=== PATIENT | male | born 1980 | race Caucasian/White ===

== ENCOUNTER 2016-11-30 05:26 | Day surgery (SDC) | payer OTHER ==
[2016-11-30] VITALS (12 sets, daily range): BP systolic 110–146; BP diastolic 48–78; PULSE 68–96; RESP 14–21; Ht 188 cm; Wt 94.2 kg
[~2016-11-30] VITALS: Ht 188 cm; Wt 94.2 kg
[2016-11-30] MEDS ORDERED: BUPR-75 PO (06:17)
--- NOTE | 2016-11-30 06:23 | HPN ---
Date/Time of Note Date/Time of Note DATE: 11/30/16 TIME: 06:22 Interval H&P Admission Note Pt. seen H&P reviewed: No system changes RADHA APONTE MD Nov 30, 2016 06:23
[2016-11-30] MEDS ORDERED: LIDOCAINE 2% (SDV) 5 ML INJ ONE (06:27)
[2016-11-30] MEDS ORDERED: FENTAnyl 50 MCG/ML VIAL ONE ×2 (06:27→09:58)
[2016-11-30] MEDS ORDERED: GLYCOPYRROLATE 1 MG INJ ONE (06:27)
[2016-11-30] MEDS ORDERED: MIDAZOLAM 1 MG/ML 2 ML INJ ONE (06:27)
[2016-11-30] MEDS ORDERED: PROPOFOL 20 ML ONE (06:27)
[2016-11-30] MEDS ORDERED: NEOSTIGMINE 3 MG/3 ML SYRINGE ONE (06:27)
[2016-11-30] MEDS ORDERED: ROCURONIUM 50 MG INJ ONE (06:27)
[2016-11-30] MEDS ORDERED: SUGAMMADEX SODIUM 200 MG/2 ML VIAL IV ONE (06:28)
[2016-11-30] MEDS ORDERED: LABETALOL HCL 20MG INJ IV PRN (06:30)
[2016-11-30] MEDS ORDERED: HYDROmorphONE (0.2 MG/ML) 10ML SYG IV PRN ×3 (06:30)
[2016-11-30] MEDS ORDERED: MEPERIDINE 25 MG INJ IV PRN (06:30)
[2016-11-30] MEDS ORDERED: FENTAnyl 50 MCG/ML VIAL IV PRN ×2 (06:30)
[2016-11-30] MEDS ORDERED: hydrALAzine 20 MG INJ IV PRN (06:30)
[2016-11-30] MEDS ORDERED: EPHEDrine SULFATE 50 MG/5 ML SYG IV PRN (06:30)
[2016-11-30] MEDS ORDERED: morphine (1 MG/ML) 10ML SYRINGE IV PRN ×3 (06:30)
[2016-11-30] MEDS ORDERED: ONDANSETRON 4 MG INJ IV PRN ×2 (06:30→12:30)
[2016-11-30] MEDS ORDERED: ATROPINE 1 MG/10 ML SYRINGE IV PRN (06:30)
[2016-11-30] MEDS ORDERED: OXYCODONE/ACETAMINOPHEN (5/325) TAB PO PRN ×4 (06:30→12:30)
[2016-11-30] MEDS ORDERED: DIPHENHYDRAMINE 50 MG INJ IV PRN (06:30)
[2016-11-30] MEDS ORDERED: MIDAZOLAM 1 MG/ML 2 ML INJ IV PRN (06:30)
[2016-11-30] MEDS ORDERED: ROPIVACAINE 0.5 % 30 ML VIAL ONE ×2 (06:40→07:07)
[2016-11-30] MEDS ORDERED: SUCCINYLCHOLINE CHLORIDE 100 MG/5 ML SYG IV ONE (07:00)
[2016-11-30] MEDS ORDERED: DEXAMETHASONE 4 MG/ML 1 ML INJ ONE (07:20)
[2016-11-30] MEDS ORDERED: ONDANSETRON 4 MG INJ ONE (07:21)
[2016-11-30] MEDS ORDERED: POVIDONE IODINE 10% 28.4 GM OINT ONE (07:25)
[2016-11-30] MEDS ORDERED: POLYMYXIN/BACITRACIN 1L IRRIG ONE (07:25)
[2016-11-30] MEDS ORDERED: hydrALAzine 20 MG INJ ONE (08:21)
[2016-11-30] MEDS ORDERED: LABETALOL HCL 20MG INJ ONE (08:26)
[2016-11-30] MEDS ORDERED: CEFAZOLIN 1 GM INJ ONE (09:07)
--- NOTE | 2016-11-30 10:38 | RADRPT ---
PROCEDURE: Intraoperative imaging of the left calcaneus with fluoroscopy. CLINICAL INDICATION: Left foot pain. Intraoperative. TECHNIQUE: 6 images of the left were obtained in the operating room with an image intensifier. No radiologist was in attendance. Fluoroscopy time is 48 seconds. COMPARISON: No prior study is available for comparison. FINDINGS: Images demonstrate osteotomy of the calcaneus and fixation with 2 cannulated screws. IMPRESSION: 1. Intraoperative imaging of the left calcaneus. RPTAT: QQ .David Pardo MD, Date Time Electronically viewed and signed by .David Pardo MD, MD on 11/30/2016 10:38 .R/
[2016-11-30] MEDS ORDERED: SOD CHLORIDE 0.9% 1,000 ML IV SCH (12:24)
--- NOTE | 2016-11-30 12:26 | OPPN ---
Date/Time of Note Date/Time of Note DATE: 11/30/16 TIME: 12:25 Operative Report Preoperative Diagnosis left foot peroneal tendon tear Postoperative Diagnosis same Operation/Procedure Performed left ankle arthroscopy, peroneal tendon debridement and tenodesis, lateral slide calc osteotomy Surgeon see signature line assistant professor of spanish Zaheer Anesthesia: general Estimated blood loss: 0 - 10 ml's Transfusion Required none Specimen peroneus longus tendon Grafts/Implants none Complications none RADHA APONTE MD Nov 30, 2016 12:26
[2016-11-30] MEDS ORDERED: morphine 2 MG INJ IV PRN (12:30)
[2016-11-30] MEDS ORDERED: MEPERIDINE 25 MG INJ ONE (12:53)
--- NOTE | 2016-11-30 18:10 | OPR ---
DATE OF OPERATION: 11/23/2016 SURGEON: Silvestre Yao MD [facility] [employer] DIRECTOR: Lesia Schwab MD PREOPERATIVE DIAGNOSES: 1. Status post-debridement and repair of tear of the peroneal brevis in 2013. 2. Rule out recurrent tear of the peroneal brevis. 3. Rule out a tear of the peroneal longus. 4. Rule out soft tissue impingement. POSTOPERATIVE DIAGNOSES: 1. Status post peroneal brevis repair 2013, left ankle. 2. Split tear recurrence, tear peroneal brevis tendon. 3. An 85 percent tear of the peroneal longus distally. 4. Soft tissue scar and impingement. 5. Tenosynovitis of the peroneal tendon sheath. OPERATION PERFORMED: 1. Arthroscopy, left ankle soft tissue distraction. 2. Extensive debridement of ankle. 3. Open lateral sliding calcaneal osteotomy with 4.5 and 7.3 AO cannulated screw fixation. 4. Debridement repair split tear peroneal brevis. 5. Debridement of the peroneal longus and with release and tenodesis of the tear to the peroneal brevis tendon. 6. Extensive tenosynovectomy. 7. Use of fluoroscopy to verify position and alignment of the osteotomy and screws. 8. Short-leg cast. Extremely complex difficult procedures because the patient had previous surgery, and the anatomy was completely altered. The tendons were all scarred and it was difficult to tell which was the peroneal brevis and which was the peroneal longus. Making the surgery much more difficult and an additional 60 minutes of time (22). ANESTHESIA: General with popliteal block. TOURNIQUET TIME: 130 minutes. OPERATIVE PROCEDURE: The patient taken operating placed supine under satisfactory, popliteal block was given, satisfactory general anesthesia was administered. 2 g Ancef intravenously. The left thigh was 5 secured in the thigh hayden, arms carefully padded. The left leg was prepped and draped in the usual manner. The superficial peroneal nerve was marked out. Distraction was applied. Standard anteromedial, anterolateral posterior lateral portals were used with extreme caution to avoid injury to neurovascular structures. There was significant synovitis and scarring throughout the ankle medially and laterally, and posteriorly. The articular surface had minimal grade 1 chondromalacia. Shaver was inserted. The medial gutter was debrided, then the lateral gutter was debrided. The anterior tib- fib ligament was intact. Deltoid ligament is intact. Posterior gutter had synovitis which was debrided. After complete debridement, attention was then turned to the further part of the surgery. The wounds were then closed with #4 black nylon and the ankle was sterilely wrapped. The patient is then repositioned on a cochran bag, and pillows, and all areas were carefully padded with an axillary roll. The left leg was then re-prepped and draped. A 45 degree oblique incision was made at the appropriate position on the posterior calcaneus, checked under fluoroscopy. This dissection carried down through the skin, the subcutaneous tissue. The periosteum was elevated. We verified again the correct position under fluoroscopy for our guide pin. Osteotomy was made for the saw and osteotome, the calcaneus was shifted laterally 9-10 mm and was fixated with a 4.5, and a 7.3 cannulated screws. Excellent fixation was obtained. X-rays were checked in AP and lateral radiographs in good position. The screws were noted a power rasp was used to smooth the edge of the lateral calcaneus and wounds irrigated antibiotic solution. The subcutaneous tissue closed with #3-0 undyed Vicryl and with #4-0 black nylon. The incision was then made through the previous incision more anteriorly over the fibula and carried down to the 5th metatarsal and proximally as well. The flaps were made minimally posteriorly. The superior peroneal retinaculum was intact and was left in place. The peroneal tendon sheath was split proximal to that. The tendons were very difficult to tell what was going on, and was completely scarred and almost looked like one big scar tendon. We then opened the tendon sheath distal to the fibula, opened the peroneal brevis sheath. We then traced it down to where the brevis was more normal. There was a split tear of the brevis where apparently it had been repaired. This was carefully debrided and traced proximally until we could then separate a little bit of the brevis to what we thought was the longus; we still could not tell what the peroneal longus was. I isolated from the peroneal longus very distal on the foot and then tract it proximally, took out an extensive amount of scar tissue until we could see that the peroneal longus could be from the brevis, and extensive tenosynovectomy was performed of the longus and brevis and the tendon sheath. The split tear of the brevis was then partly cut and removed. The remaining tendon was then tuberized with #2-0 PDS running suture. The longus had about 85 percent tears that went through the cuboid notch. We felt basically that it was completely torn. We cut it distally and then cut out the most rotten segment, and then 4 or 5 cm above the tip of the fibula we tenodesed it to the peroneal brevis with #0 FiberWire. The wound was irrigated with antibiotic solution. The brevis moved smoothly. The peroneal tendon sheath with the brevis was closed distally with a running #3-0 PDS, and was then closed proximally. Tourniquet was released. Bleeders were coagulated. The subcutaneous tissue was closed with #3-0 undyed Vicryl, and the skin with #4-0 black nylon. A saphenous nerve block was given of 0.5 percent ropivacaine. Compression was applied, short-leg cast in neutral position. At the end of the procedure the sponge and needle count was correct. Patient tolerated procedure well. WEIGHTER ORTHOPEDIC SURGEON: During the procedure periodontal assistant orthopedic surgeon was used at my request. The periodontal assistant helped with retraction and mobilization of the ankle. Also help with sorting out which tendons were the brevis and which were longus and assisted with repair and debridement. Without a skilled periodontal assistant this could not have been done. Therefore, should be compensated appropriately. Dictated By: Silvestre Yao MD /[email or web address] /Document#: [id number] CC: Silvestre Yao MD; MD MIKE Rhoades
== END 2016-11-30 15:52 | disposition home or self-care (01) ==
LOC: SDS 05:26 → EDSTATUS 07:00 → SDS 15:52
PROVIDERS: ATTEND Orthopaedic Surgery
DX: S86.322A Laceration of muscle(s) and tendon(s) of peroneal muscle group at lower leg level, left leg, initial encounter (principal); M25.872 Other specified joint disorders, left ankle and foot; M65.872 Other synovitis and tenosynovitis, left ankle and foot
CPT/HCPCS: 28200; 28300; 29898; 73650; C1713; J0360; J0690; J1100; J2250; J2405; J2795; J3010; J7999; J2175; J2710